=== PATIENT | male | born 1965 | race Caucasian/White ===

== ENCOUNTER → 2016-12-12 | Outpatient (CLI) | payer BC, OTHER ==
--- NOTE | 2016-12-13 07:09 | XR ---
Right elbow HISTORY: Pain and limited range of motion 3 views of the right elbow No comparisons Bone mineralization and alignment are maintained. There is marginal spurring present, joint space los s, remodeling especially at the radial aspect of the joint. There is no definite joint effusion. Smal l calcification thought present at the insertion of the triceps tendon. Difficult to exclude loose lito dies. IMPRESSION: Osteoarthritis, there may be osteochondromatosis, additional imaging may be of benefit
== END | disposition home or self-care (01) ==
LOC: RADXRYALE 16:21
PROVIDERS: ATTEND Internal Medicine
DX: M19.021 Primary osteoarthritis, right elbow (principal)

== ENCOUNTER 2017-01-27 09:01 | Observation (INO) | payer OTHER ==
[2017-01-27] MEDS ORDERED: RX INFO: IV CONTRAST WAS GIVEN 1 EACH MISC MISCELLANE PRN (09:12)
[2017-01-27] MEDS ORDERED: ONDANSETRON 4 MG/2 ML VIAL IVP STA (09:12)
[2017-01-27] MEDS ORDERED: SODIUM CHLORIDE 0.9% 1,000 ML IV STA (09:12)
[2017-01-27] MEDS ORDERED: HYDROmorphone 1 MG/ML 1 ML SYRINGE IVP STA (09:12)
--- NOTE | 2017-01-27 09:17 | ED ---
Abdominal Pain HPI - General Source: patient, RN notes reviewed Mode of arrival: ambulatory Limitations: no limitations <Byron Tamayo - Last Filed: 01/27/17 11:33> <Lg Renteria - Last Filed: 01/27/17 12:23> - General Chief Complaint: Abdominal Pain Stated Complaint: LRQ PAIN Time Seen by Provider: 01/27/17 09:09 - History of Present Illness Initial Comments: 51-year-old male presents emergency Department with chief complaint of right lower quadrant abdominal pain. Patient states that he initially had some pain 6 weeks ago states it subsided then has returned. Patient states it is worse over the last 24 hours especially with lifting logs yesterday. Patient denies any bulging. He states is just painful in the area and seems to radiate slightly across his abdomen. Patient denies any nausea, vomiting diarrhea constipation. Denies any fevers or chills. Patient denies any prior abdominal surgeries no prior colonoscopy in the past. Patient denies any dysuria, hematuria. Patient denies any fever, chills, chest pain or shortness of breath. Denies any flank pain. (Byron Tamayo) - Related Data Home Medications Medication Instructions Recorded Confirmed No Known Home Medications [No 01/27/17 01/27/17 Known Home Medications] Allergies Allergy/AdvReac Type Severity Reaction Status Date / Time No Known Allergies Allergy Verified 01/27/17 10:41 Review of Systems ROS Other: All systems not noted in ROS Statement are negative. <Byron Tamayo - Last Filed: 01/27/17 11:33> ROS Other: All systems not noted in ROS Statement are negative. <Lg Renteria - Last Filed: 01/27/17 12:23> ROS Statement: Those systems with pertinent positive or pertinent negative responses have been documented in the HPI. Past Medical History Past Medical History: No Reported History History of Any Multi-Drug Resistant Organisms: None Reported Past Surgical History: No Surgical Hx Reported Past Psychological History: No Psychological Hx Reported Smoking Status: Never smoker Past Alcohol Use History: Occasional Past Drug Use History: None Reported <Byron Tamayo - Last Filed: 01/27/17 11:33> General Exam Limitations: no limitations General appearance: alert, in no apparent distress Head exam: Present: atraumatic, normocephalic, normal inspection Respiratory exam: Present: normal lung sounds bilaterally. Absent: respiratory distress, wheezes, rales, rhonchi, stridor Cardiovascular Exam: Present: regular rate, normal rhythm, normal heart sounds. Absent: systolic murmur, diastolic murmur, rubs, gallop, clicks GI/Abdominal exam: Present: soft, tenderness (Moderate right lower quadrant tenderness), normal bowel sounds. Absent: distended, guarding, rebound, rigid Back exam: Absent: CVA tenderness (R), CVA tenderness (L) Neurological exam: Present: alert, oriented X3, CN II-XII intact Skin exam: Present: warm, dry, intact, normal color. Absent: rash <Byron Tamayo - Last Filed: 01/27/17 11:33> Medical Decision Making - Lab Data Result diagrams: 01/27/17 09:35 01/27/17 09:35 <Byron Tamayo - Last Filed: 01/27/17 11:33> - Lab Data Result diagrams: 01/27/17 09:35 01/27/17 09:35 <Lg Renteria - Last Filed: 01/27/17 12:23> - Medical Decision Making Medical decision-making. This is a 51-year-old male to complaint of pain to the right lower quadrant. CT was done showing evidence of swollen appendix. Radiologist his diagnosing acute appendicitis radiographically. White count 14, 000. Examination of the patient finds pain and guarding to the right lower quadrant positive for rebound or referred pain. Case discussed with general surgeon Dr. Jain. Wants patient admitted to hospital started on IV antibiotics was already been started, Zosyn. Pain medication and nothing by mouth, he will see the patient. Dr. Renteria General surgeon Dr. jain saw the patient in the emergency room. Patient admitted to his service. Dr. Renteria (Lg Renteria) - Lab Data Lab Results 01/27/17 01/27/17 01/27/17 Range/Units 09:35 09:35 10:35 WBC 14.4 H (3.8-10.6) k/uL RBC 4.83 (4.30-5.90) m/uL Hgb 16.4 (13.0-17.5) gm/dL Hct 47.6 (39.0-53.0) % MCV 98.6 (80.0-100.0) fL MCH 34.0 (25.0-35.0) pg MCHC 34.5 (31.0-37.0) g/dL RDW 13.0 (11.5-15.5) % Plt Count 224 (150-450) k/uL Neutrophils % 82 % Lymphocytes % 10 % Monocytes % 7 % Eosinophils % 0 % Basophils % 0 % Neutrophils # 11.8 H (1.3-7.7) k/uL Lymphocytes # 1.5 (1.0-4.8) k/uL Monocytes # 1.0 (0-1.0) k/uL Eosinophils # 0.0 (0-0.7) k/uL Basophils # 0.0 (0-0.2) k/uL Sodium 138 (137-145) mmol/L Potassium 4.2 (3.5-5.1) mmol/L Chloride 104 (98-107) mmol/L Carbon Dioxide 24 (22-30) mmol/L Anion Gap 10 mmol/L BUN 13 (9-20) mg/dL Creatinine 0.75 (0.66-1.25) mg/dL Est GFR (MDRD) Af Amer >60 (>60 ml/min/1.73 sqM) Est GFR (MDRD) Non-Af >60 (>60 ml/min/1.73 sqM) Glucose 119 H (74-99) mg/dL Calcium 10.2 (8.4-10.2) mg/dL Total Bilirubin 1.9 H (0.2-1.3) mg/dL AST 16 L (17-59) U/L ALT 30 (21-72) U/L Alkaline Phosphatase 73 (38-126) U/L Total Protein 7.7 (6.3-8.2) g/dL Albumin 4.8 (3.5-5.0) g/dL Amylase 51 (30-110) U/L Lipase 80 (23-300) U/L Urine Color Yellow Urine Appearance Clear (Clear) Urine pH 6.0 (5.0-8.0) Ur Specific [place] 1.009 (1.001-1.035) Urine Protein Negative (Negative) Urine Glucose (UA) Negative (Negative) Urine Ketones Negative (Negative) Urine Blood Negative (Negative) Urine Nitrite Negative (Negative) Urine Bilirubin Negative (Negative) Urine Urobilinogen <2.0 (<2.0) mg/dL Ur Leukocyte Esterase Negative (Negative) Disposition <Byron Tamayo - Last Filed: 01/27/17 11:33> <Lg Renteria - Last Filed: 01/27/17 12:23> Clinical Impression: Acute appendicitis Disposition: ADMITTED IP TO THIS HOSP Condition: Fair
[2017-01-27 10:13] LABS: Basophils % (A) 0 %; CH 33.9; CHCM 34.6; Eosinophils % (A) 0 %; HCT 47.6 % (39.0-53.0); HDW 2.26; HGB 16.4 gm/dL (13.0-17.5); Luc # (Auto) 0.16; Luc % (Auto) 1; Lymphocytes # (A) 1.5 k/uL (1.0-4.8); Lymphocytes % (A) 10 %; MCHC 34.5 g/dL (31.0-37.0); MCV 98.6 fL (80.0-100.0); Mean Platelet Volume 7.4; Monocytes % (A) 7 %; Neutrophils # (A) 11.8 k/uL (1.3-7.7); Neutrophils % (A) 82 %; RBC 4.83 m/uL (4.30-5.90); WBC 14.4 k/uL (3.8-10.6); WBC (Perox) 13.83
[2017-01-27 10:22] LABS: ALT 30 U/L (21-72); AST 16 U/L (17-59); Alkaline Phosphatase 73 U/L (38-126); Amylase 51 U/L (30-110); Anion Gap 10 mmol/L; Blood Urea Nitrogen 13 mg/dL (9-20); Calcium 10.2 mg/dL (8.4-10.2); Carbon Dioxide 24 mmol/L (22-30); Chloride 104 mmol/L (98-107); Glucose 119 mg/dL (74-99); Non-African American GFR(MDRD) >60 (>60 ml/min/1.73 sqM); Potassium 4.2 mmol/L (3.5-5.1); Sodium 138 mmol/L (137-145); Total Bilirubin 1.9 mg/dL (0.2-1.3); Total Protein 7.7 g/dL (6.3-8.2)
[2017-01-27 10:51] LABS: Appearance,Urine Clear (Clear); Bilirubin,Urine Negative (Negative); Glucose,Urine (UA) Negative (Negative); Ketones,Urine Negative (Negative); Leukocyte Esterase,Urine Negative (Negative); Nitrite,Urine Negative (Negative); Protein,Urine Negative (Negative); Specific Gravity,Urine 1.009 (1.001-1.035); UA Billing (MACRO vs. MICRO) CHEM; Urobilinogen,Urine <2.0 mg/dL (<2.0)
--- NOTE | 2017-01-27 11:25 | CT ---
EXAMINATION TYPE: CT abdomen pelvis w con DATE OF EXAM: 01/27/2017 REFERENCE: NONE HISTORY: abdominal pain HISTORY: RLQ pain REFERENCE: NONE CT DLP: 656.1 mGy Automated exposure control for dose reduction was used. TECHNIQUE: Helical acquisition through the abdomen and pelvis was obtained following the oral ingesti on of without Oral Contrast and following intravenous administration of 100 mL of Omnipaque 300. The data was reformatted in axial, coronal and sagittal projections. FINDINGS: Visualized portions of the lungs are clear. There is no pleural or pericardial fluid. The heart is not enlarged. Within the abdomen, there is an 8.4 mm low attenuating lesion in the dome of the diaphragm to small a ccurately characterize seen only on the coronal images. The liver is mildly prominent measuring 19 cm . The spleen and gallbladder appear normal. There is a tiny hiatal hernia. Both adrenal glands appear normal. Both kidneys demonstrate function and appear morphologically normal. The pancreas is unremarkable. There is no significant retroperitoneal, iliac or inguinal adenopathy. The bladder is unremarkable. There are scattered diverticula in the sigmoid region. I do not see radiographic evidence of divertic ulitis. The appendix is grossly thickened measuring 2.6 cm in thickness. There is associated inflammation a s mall amount of adjacent fluid. No free air is seen. There is no drainable abscess. There is degenerative disc disease at L4-5 and L5-S1 with a vacuum phenomena present at L4-5. No bony destructive lesion is seen. IMPRESSION: 1. ACUTE APPENDICITIS. 2. TINY LESION IN THE DOME OF THE LIVER TOO SMALL TO CHARACTERIZE. HEPATIC ULTRASOUND MAY BE WORTHWHI LE. 3. SMALL HIATAL HERNIA. 4. MINIMAL UNCOMPLICATED DIVERTICULOSIS OF THE SIGMOID COLON. 5. MILD DEGENERATIVE CHANGES WITHIN THE SPINE.
[2017-01-27] MEDS ORDERED: PIPERACILLIN-TAZOBACTAM 3.375 GM in DEXTROSE/WATER 1 50ML.BAG IVPB STA (11:33)
[2017-01-27] MEDS ORDERED: NALOXONE 0.4 MG/ML 1 ML VIAL IV PRN (11:34)
[2017-01-27] MEDS ORDERED: HYDROmorphone 1 MG/ML 1 ML SYRINGE IVP PRN (11:44)
[2017-01-27] MEDS ORDERED: ONDANSETRON 4 MG/2 ML VIAL IVP PRN (11:45)
[2017-01-27] MEDS: SODIUM CHLORIDE 0.9% 1,000 ML IV SCH ×2 (12:13→20:59)
--- NOTE | 2017-01-27 12:22 | P.GSHP ---
History of Present Illness H&P Date: 01/27/17 Chief Complaint: Right-sided abdominal pain This a 51-year-old male who is admitted to the hospital complaints of right- sided abdominal pain. Patient states that he developed pain proximal to 6 weeks ago. The pain has been intermittent in nature. He would have days were flareup and then subsides spontaneously. Patient developed similar pain yesterday which did not improve. He was seen in emergency room underwent CAT scan which showed evidence of chronic appendicitis with a dilated appendix. - Constitutional Constitutional: Reports as per HPI Past Medical History Past Medical History: No Reported History History of Any Multi-Drug Resistant Organisms: None Reported Past Surgical History: No Surgical Hx Reported Past Psychological History: No Psychological Hx Reported Smoking Status: Never smoker Past Alcohol Use History: Occasional Past Drug Use History: None Reported Medications and Allergies Home Medications Medication Instructions Recorded Confirmed Type No Known Home Medications [No 01/27/17 01/27/17 History Known Home Medications] Allergies Allergy/AdvReac Type Severity Reaction Status Date / Time No Known Allergies Allergy Verified 01/27/17 10:41 Surgical - Exam Vital Signs Temp Pulse Resp BP Pulse Ox 98.7 F 84 17 149/89 98 01/27/17 09:02 01/27/17 09:02 01/27/17 09:02 01/27/17 09:02 01/27/17 09:02 - General well developed, no distress - Eyes PERRL - ENT normal pinna - Neck no masses - Respiratory normal expansion - Cardiovascular Rhythm: regular - Abdomen Abdomen soft. There is some tenderness in the right lower quadrant. There is no rebound or guarding. There is minimal tenderness at McBurney's point. Abdomen: soft Results - Labs 01/27/17 09:35 01/27/17 09:35 Abnormal Lab Results - Last 24 Hours (Table) 01/27/17 01/27/17 Range/Units 09:35 09:35 WBC 14.4 H (3.8-10.6) k/uL Neutrophils # 11.8 H (1.3-7.7) k/uL Glucose 119 H (74-99) mg/dL Total Bilirubin 1.9 H (0.2-1.3) mg/dL AST 16 L (17-59) U/L Diabetes panel 01/27/17 Range/Units 09:35 Sodium 138 (137-145) mmol/L Potassium 4.2 (3.5-5.1) mmol/L Chloride 104 (98-107) mmol/L Carbon Dioxide 24 (22-30) mmol/L BUN 13 (9-20) mg/dL Creatinine 0.75 (0.66-1.25) mg/dL Glucose 119 H (74-99) mg/dL Calcium 10.2 (8.4-10.2) mg/dL AST 16 L (17-59) U/L ALT 30 (21-72) U/L Alkaline Phosphatase 73 (38-126) U/L Total Protein 7.7 (6.3-8.2) g/dL Albumin 4.8 (3.5-5.0) g/dL Calcium panel 01/27/17 Range/Units 09:35 Calcium 10.2 (8.4-10.2) mg/dL Albumin 4.8 (3.5-5.0) g/dL Pituitary panel 01/27/17 Range/Units 09:35 Sodium 138 (137-145) mmol/L Potassium 4.2 (3.5-5.1) mmol/L Chloride 104 (98-107) mmol/L Carbon Dioxide 24 (22-30) mmol/L BUN 13 (9-20) mg/dL Creatinine 0.75 (0.66-1.25) mg/dL Glucose 119 H (74-99) mg/dL Calcium 10.2 (8.4-10.2) mg/dL Adrenal panel 01/27/17 Range/Units 09:35 Sodium 138 (137-145) mmol/L Potassium 4.2 (3.5-5.1) mmol/L Chloride 104 (98-107) mmol/L Carbon Dioxide 24 (22-30) mmol/L BUN 13 (9-20) mg/dL Creatinine 0.75 (0.66-1.25) mg/dL Glucose 119 H (74-99) mg/dL Calcium 10.2 (8.4-10.2) mg/dL Total Bilirubin 1.9 H (0.2-1.3) mg/dL AST 16 L (17-59) U/L ALT 30 (21-72) U/L Alkaline Phosphatase 73 (38-126) U/L Total Protein 7.7 (6.3-8.2) g/dL Albumin 4.8 (3.5-5.0) g/dL - Imaging CT scan - abdomen: report reviewed (2.7 cm dilated appendix.) Assessment and Plan Plan: Acute and chronic appendicitis. Patient received IV and Vioxx today. He'll undergo laparoscopic appendectomy in the a.m.
[2017-01-27 13:26] VITALS: BMI 27.9
[2017-01-27] MEDS: HYDROmorphone 1 MG/ML 1 ML SYRINGE IVP PRN ×2 (19:58→23:27)
[2017-01-27] MEDS: PIPERACILLIN-TAZOBACTAM 3.375 GM in DEXTROSE/WATER 1 50ML.BAG IVPB SCH (21:03)
[2017-01-28] MEDS: HYDROmorphone 1 MG/ML 1 ML SYRINGE IVP PRN ×2 (03:38→07:09)
[2017-01-28] MEDS: SODIUM CHLORIDE 0.9% 1,000 ML IV SCH ×2 (03:38→11:47)
[2017-01-28] MEDS: PIPERACILLIN-TAZOBACTAM 3.375 GM in DEXTROSE/WATER 1 50ML.BAG IVPB SCH ×3 (03:46→21:30)
[2017-01-28] MEDS ORDERED: IV FLUID CONTINUATION 1,000 ML IV ONE (10:39)
[2017-01-28] MEDS ORDERED: DEXAMETHASONE SOD PHOS (MDV) 100 MG/10 ML VIAL IV ONE (10:57)
--- NOTE | 2017-01-28 11:05 | P.PN ---
Progress Note - Text The patient feels slightly better today. He still has some mild right lower quadrant pain. On exam his vital signs are stable. His abdomen is soft. There is minimal right lower quadrant tenderness. Chronic appendicitis. We'll perform laparoscopic appendectomy.
[2017-01-28] MEDS ORDERED: HEPARIN SODIUM,PORCINE 5,000 UNIT/ML 1 ML VIAL SQ ONE (11:08)
[2017-01-28] MEDS ORDERED: GLYCOPYRROLATE 0.2 MG/ML 2 ML VIAL ONE (11:34)
[2017-01-28] MEDS ORDERED: MIDAZOLAM 2 MG/2 ML VIAL ONE (11:34)
[2017-01-28] MEDS ORDERED: PROPOFOL 10 MG/ML 20 ML VIAL IV ONE (11:34)
[2017-01-28] MEDS ORDERED: ROCURONIUM BROMIDE 10 MG/ML 10 ML VIAL IV ONE (11:34)
[2017-01-28] MEDS ORDERED: fentaNYL (PF) 50 MCG/ML 2 ML AMP ONE (11:34)
[2017-01-28] MEDS ORDERED: LIDOCAINE 1% INJ 10MG/ML (20 ML MDV) ONE (11:34)
[2017-01-28] MEDS ORDERED: SUCCINYLCHOLINE CHLORIDE VIAL 200 MG/10 ML VIAL IV ONE (11:34)
[2017-01-28] MEDS ORDERED: NEOSTIGMINE 1 MG/ML 10 ML VIAL ONE (11:34)
[2017-01-28] MEDS ORDERED: SODIUM CHLORIDE 0.9% 100 ML with ceFAZolin 2,000 MG IV ONE ×2 (11:55)
[2017-01-28] MEDS ORDERED: BUPIVACAIN-EPI 0.5%-1:200,000 30 ML VIAL SQ ONE (11:56)
[2017-01-28] MEDS ORDERED: BENZOCAINE/MENTHOL LOZENG 1 EACH LOZENGE MUCOUS MEM PRN (12:12)
[2017-01-28] MEDS ORDERED: HYDROmorphone 1 MG/ML 1 ML SYRINGE IVP PRN (12:12)
[2017-01-28] MEDS ORDERED: KETOROLAC 30 MG/ML 1 ML VIAL IVP PRN (12:12)
--- NOTE | 2017-01-28 12:12 | P.OP ---
Date of Procedure: 01/28/17 Preoperative Diagnosis: Appendicitis Postoperative Diagnosis: Appendicitis Procedure(s) Performed: Laparoscopic appendectomy Implants: Anesthesia: NILAM Surgeon: Stanford Jain Estimated Blood Loss (ml): 5 Pathology: other (Appendix) Condition: stable Disposition: PACU Indications for Procedure: Operative Findings: Description of Procedure: The patient's placed on the operating table in the supine position. The patient received general anesthesia. The abdomen was prepped and draped in the usual sterile fashion. The skin was anesthetized 1% local Xylocaine at the trocar sites. Using an 11 blade the skin was incised at the umbilicus. The umbilicus was grasped with a [place] clamp and then a Veress needle was placed into the peritoneal cavity. Position of the Veress needle was confirmed with positive drop test. After adequate insufflation a 5 mm trocar was placed into the peritoneal cavity. The abdomen was further insufflated. And then the laparoscope was placed in the peritoneal cavity. Next a 5 mm trocar was placed in the midline suprapubic position. And then a 10 mm trocar was placed in the midline epigastric position. The patient was rotated with the right side up and in Trendelenburg. The appendix was visualized. The appendix appeared to be inflamed. The appendix was grasped and then using the Harmonic scissors the mesoappendix was divided. A PDS Endoloop was then placed around the base of the appendix. And then the appendix was divided using Harmonic scissors. The appendix was placed into an Endo Catch and brought out through the 10 mm trocar site. The abdomen was irrigated. There is no bleeding seen. The trochars withdrawn. The skin was closed interrupted 3-0 Monocryl suture. Dermabond dressing was applied. Patient was sent to recovery room in stable condition.
[2017-01-28] MEDS ORDERED: LACTATED RINGERS 1,000 ML IV ONE (12:15)
[2017-01-28] MEDS: HYDROmorphone 1 MG/ML 1 ML SYRINGE IVP ONE ×2 (12:32→12:39)
[2017-01-28 12:39] VITALS: RESP 16
[2017-01-28] MEDS: HYDROcodone/APAP 7.5-325MG 1 EACH TAB PO PRN ×3 (14:13→22:03)
[2017-01-28] MEDS: D5-0.45% NACL WITH KCL 20MEQ/L 1,000 ML IV SCH ×2 (15:23→21:30)
[2017-01-29] MEDS: PIPERACILLIN-TAZOBACTAM 3.375 GM in DEXTROSE/WATER 1 50ML.BAG IVPB SCH ×2 (02:49→12:28)
[2017-01-29] MEDS: HYDROcodone/APAP 7.5-325MG 1 EACH TAB PO PRN ×4 (02:50→16:28)
[2017-01-29] MEDS: D5-0.45% NACL WITH KCL 20MEQ/L 1,000 ML IV SCH (02:51)
[2017-01-29] MEDS ORDERED: ENOXAPARIN 40 MG/0.4 ML SYRINGE SQ SCH (09:00)
[2017-01-29 14:58] VITALS: BP 116/58; PULSE 75; TEMP 98.4
--- NOTE | 2017-01-29 18:48 | P.DS ---
Providers Date of admission: 01/27/17 11:56 Expected date of discharge: 01/29/17 Attending physician: Stanford Jain Primary care physician: Indy Malone Hospital Course: This a 51-year-old male who was admitted to hospital with chronic appendicitis. Patient underwent laparoscopic appendectomy . Please see hospital chart for details. Procedures: Laparoscopic appendectomy Patient Condition at Discharge: Fair Plan - Discharge Summary New Discharge Prescriptions: New Docusate [Colace] 100 mg PO BID #20 capsule HYDROcodone/APAP 7.5-325MG [[place] 7.5] 1 each PO Q4H PRN #60 tab PRN Reason: Pain Discharge Medication List Docusate [Colace] 100 mg PO BID #20 capsule 01/29/17 [Rx] HYDROcodone/APAP 7.5-325MG [[place] 7.5] 1 each PO Q4H PRN #60 tab 01/29/17 [Rx] Follow up Appointment(s)/Referral(s): Indy Malone MD [Primary Care Provider] - 02/06/17 3:15 pm Stanford Jain MD [STAFF PHYSICIAN] - 1 Week (Patient to call Dr. Jain's office Saturday morning to schedule follow up appointment. The office is closed at time of discharge.) Patient Instructions/Handouts: Laparoscopic Appendectomy (DC) Discharge Disposition: HOME SELF-CARE
== END 2017-01-29 18:40 | disposition home or self-care (01) ==
LOC: EC 09:01 → 3SUR 11:56
PROVIDERS: ADMIT Surgery; ATTEND Surgery
DX: K35.80 Unspecified acute appendicitis (principal); K44.9 Diaphragmatic hernia without obstruction or gangrene; K57.30 Diverticulosis of large intestine without perforation or abscess without bleeding
CPT/HCPCS: 44970; 96376 ×3; 96366 ×2; 96372; 96375 ×2; 96361; 96365; 99285; 36415; 88304; 80053; 82150; 83690; 85025; 81003; 74177; G0378 ×3; J2250; J0330; J1644; J2710; J2405 ×2; J0690; J2001; J1650; J3010; J1885; J1170 ×2; J2543 ×3; Q9967; J1100; J2704

== ENCOUNTER → 2017-10-02 | Outpatient (CLI) | payer OTHER ==
--- NOTE | 2017-10-03 08:21 | CT ---
EXAMINATION TYPE: CT chest abdomen w con DATE OF EXAM: 10/02/2017 COMPARISON: 01/27/2017 HISTORY: Right upper quadrant pain CT DLP: 686.6 mGycm. Automated Exposure Control for Dose Reduction was Utilized. CONTRAST: CT scan of the thorax, abdomen and pelvis is performed with IV Contrast, patient injected with 100 mL of Omnipaque 300. FINDINGS: LUNGS: The lungs are grossly clear, there is no concerning parenchymal mass or nodule identified. Ve ry minimal bibasilar subsegmental dependent atelectasis is present. There is no pleural effusion or p neumothorax seen. The tracheobronchial tree is patent. MEDIASTINUM: There are no greater than 1 cm hilar or mediastinal lymph nodes. Strand-like density wi thin the superior mediastinum likely represents scant residual thymic tissue. No pericardial effusion is seen. OTHER: Very small hiatal hernia is redemonstrated. LIVER/GB: There are scattered hypoattenuated subtle subcentimeter hepatic lesions throughout the hepa tic parenchyma with the largest measuring up to 5 mm on series 3 image 56. The previously seen 8 mm l esion in the dome of diaphragm is only partially visualized on today's examination on series 3 image 48. All these lesions (approximately 13) are too small to accurately characterize. Additionally focal geographic area of hypoattenuation is seen within segment IVb of the liver, most commonly related to focal fatty infiltration. Retrospectively all of these tiny foci throughout the liver are seen on th e prior exam and stable from 01/27/2017. These statistically represent tiny cyst although surveillance is recommended. PANCREAS: No significant abnormality is seen. No ductal dilatation. SPLEEN: No significant abnormality is seen. No splenomegaly. Small splenule seen adjacent to the emi ve spleen. ADRENALS: No significant abnormality is seen. No nodules. KIDNEYS: Kidneys enhance and excrete symmetrically. No hydronephrosis. BOWEL: The transverse colon is decompressed although appears to demonstrate paucity of haustral kristine ngs and engorgement of the adjacent vasa recta without significant fat stranding. This may relate to incomplete distention or mild colitis. Correlate with patient's symptoms. LYMPH NODES: No greater than 1cm abdominal or pelvic lymph nodes are appreciated. OSSEOUS STRUCTURES: Multilevel mild degenerative disc disease of the visualized thoracolumbar spine i s redemonstrated. IMPRESSION: 1. Numerous approximately 2 mm hepatic lesions with the largest measuring 5 mm. These are punctate an d vague but retrospectively stable from the prior exam and most commonly represent small cysts in a p atient without background liver disease, however surveillance is recommended with repeat CT in 6-12 m [facility]. Alternatively MRI hepatic mass protocol could be performed to evaluate for any abnormal enhanc ement or very bright T2 signal that would indicate cysts. 2. Paucity of haustral markings within the transverse colon with engorgement of the adjacent vasculat ure, which could relate to very mild colitis or may relate to incomplete distention. Correlate with p atient's symptoms. 3. Redemonstration of a very small hiatal hernia.
== END | disposition home or self-care (01) ==
LOC: RADCTMAIN 14:22
PROVIDERS: ATTEND Internal Medicine
DX: K76.9 Liver disease, unspecified (principal); K44.9 Diaphragmatic hernia without obstruction or gangrene
CPT/HCPCS: 71260; 74160; Q9967

== ENCOUNTER → 2017-10-14 | Outpatient (CLI) | payer OTHER ==
--- NOTE | 2017-10-15 00:40 | MR ---
EXAMINATION TYPE: MR liver wo/w con DATE OF EXAM: 10/14/2017 COMPARISON: CT scan 10/02/2017 HISTORY: Liver disease, unspecified CONTRAST: Standard multiplanar, multisequence MRI departmental protocol utilizing 7.5 mL intravenous Gadavist g adolinium contrast. FINDINGS: Liver has normal size and contour. The gallbladder appears normal. There are numerous small rounded high signal foci on the T2 images throughout the liver consistent with multiple cysts. There is no pathologic enhancement. These have low signal on the T1 images. There is no evidence of pancreatic mass. Spleen appears normal. There is no adrenal mass. Kidneys show normal size and contour. There is no hydronephrosis. There is no retroperitoneal adenopathy. There is no sign of ascites. I see no sign of pleural effusion. IMPRESSION: Numerous small cysts throughout the liver. Otherwise negative MR scan of the abdomen. No change benji red to recent CT scan on 10/02/2017.
== END | disposition home or self-care (01) ==
LOC: RADMRIMAIN 05:58
PROVIDERS: ATTEND Internal Medicine
DX: K76.89 Other specified diseases of liver (principal)
CPT/HCPCS: 74183; A9581

== ENCOUNTER 2017-10-18 07:30 | Day surgery (SDC) | payer OTHER ==
[2017-10-15 15:22] VITALS: BMI 26.1
[~2017-10-18 07:30] MED LIST: LACTATED RINGERS 1,000 ML IV SCH; LIDOCAINE 1% 20 ML VIAL (10MG/ML) FOR IV START INTRADERMA PRN
[2017-10-18 08:08] VITALS: RESP 16; TEMP 97.8
[2017-10-18] MEDS ORDERED: LIDOCAINE 1% INJ 10MG/ML (20 ML MDV) ONE (08:46)
[2017-10-18] MEDS ORDERED: PROPOFOL 10 MG/ML 20 ML VIAL IV ONE (08:46)
--- NOTE | 2017-10-18 08:48 | P.GSHP ---
History of Present Illness H&P Date: 10/18/17 Chief Complaint: GERD, diverticulitis This a 52-year-old male who's had complaints of GERD and left lower quadrant pain. Patient presents today for EGD and colonoscopy to evaluate for GERD and diverticulitis. Past Medical History Past Medical History: No Reported History Additional Past Medical History / Comment(s): hiatal hernia. poss diverticulosis History of Any Multi-Drug Resistant Organisms: None Reported Past Surgical History: Appendectomy Past Anesthesia/Blood Transfusion Reactions: No Reported Reaction Smoking Status: Never smoker - Past Family History Mother Family Medical History: No Reported History Medications and Allergies Home Medications Medication Instructions Recorded Confirmed Type Acetaminophen Tab [Tylenol Tab] 650 mg PO Q6H PRN 10/15/17 10/18/17 History Ibuprofen [Motrin] 800 mg PO Q8H PRN 10/18/17 10/18/17 History Allergies Allergy/AdvReac Type Severity Reaction Status Date / Time No Known Allergies Allergy Verified 10/18/17 07:59 Surgical - Exam Vital Signs Temp Pulse Resp BP Pulse Ox 97.8 F 103 H 16 136/93 97 10/18/17 08:07 10/18/17 08:07 10/18/17 08:07 10/18/17 08:07 10/18/17 08:07 - General well developed, no distress - Eyes PERRL - ENT normal pinna - Neck no masses - Respiratory normal expansion - Cardiovascular Rhythm: regular - Abdomen Abdomen: soft, non tender Assessment and Plan Assessment: GERD, left lower quadrant pain. We'll perform EGD to evaluate for GERD and colonoscopy today for left lower quadrant pain and possible diverticulitis.
--- NOTE | 2017-10-18 09:11 | P.OP ---
Date of Procedure: 10/18/17 Preoperative Diagnosis: GERD Diverticulitis Postoperative Diagnosis: Antral gastritis Small hilar hernia Mild esophagitis Rectal polyp Sigmoid colon polyp Mild diverticulosis External hemorrhoids Procedure(s) Performed: EGD Colonoscopy Anesthesia: MAC Surgeon: Stanford Jain Pathology: other (Rectal polyp, sigmoid colon polyp, antrum, esophagus) Condition: stable Disposition: PACU Description of Procedure: The patient's placed on the endoscopy table lateral position. He received IV sedation. The gastroscope placed oropharynx passed in the esophagus and stomach. The scope was then placed through the pylorus. First and second portion of the duodenum. Normal. Scope was then brought back and the antrum and this was mildly deformed. A biopsies was performed. The scope was then retroflexed and there was a small sliding hiatal hernia. The GE junction was at 38 cm. The distal esophagus appeared minimally inflamed a biopsies performed. The proximal esophagus appeared normal. The scope was withdrawn for patient. Next digital rectal exam was performed which revealed external hemorrhoids. The flexible colonoscope was then placed patient anus passed throughout the entire colon. The ileocecal valve was visualized. The cecum, ascending and transverse colon appeared normal. In the descending colon was a few scattered diverticula. Scope was brought back and sigmoid colon and a peduncular polyp was seen. This removed with the snare. Scope was then brought back the rectum another small sessile polyp was seen this removed the forcep. The scope was then withdrawn.
[2017-10-18 09:27] VITALS: BP 116/67; PULSE 85
== END 2017-10-18 09:55 | disposition home or self-care (01) ==
LOC: ORWHC2ENDO 07:30
PROVIDERS: ATTEND Surgery
DX: K29.50 Unspecified chronic gastritis without bleeding (principal); K21.0 Gastro-esophageal reflux disease with esophagitis; K63.5 Polyp of colon; K44.9 Diaphragmatic hernia without obstruction or gangrene; K64.4 Residual hemorrhoidal skin tags; K62.1 Rectal polyp
CPT/HCPCS: 88305; 45385; 45380; 43239; J2001; J2704

== ENCOUNTER → 2021-11-03 | Outpatient (CLI) | payer OTHER ==
--- NOTE | 2021-11-03 20:49 | MR ---
EXAMINATION TYPE: MR lumbar spine wo con DATE OF EXAM: 11/03/2021 COMPARISON: CT abdomen and pelvis 2017. HISTORY: Low back pain & numbness that radiates down both legs since Jun 2021 due to compression inju ry TECHNIQUE: Multiplanar, multisequence imaging of the lumbar spine is performed without IV contrast. FINDINGS: Sagittal images of the lumbar spine show vertebral body heights and alignment to appear sta ble. We will use transitional type L6 vertebra. There is moderate to advanced disc space narrowing wi th heterogeneous Modic type II endplate changes and mild to moderate anterior spurring at L5-L6 level . Moderate disc space narrowing at L6-S1 level is present with sacralized left L6 segment redemonstra marita. The conus medullaris is normal in position and signal ending at mid L1 level. Axial images show T12-L1 and L1-L2 levels to appear within normal limits. Axial images at L2-L3 level show [id number] broad disc bulge with left foraminal disc protrusio n component. There is mild effacement of the anterior thecal sac. There is mild left-sided anterior i nferior neural foraminal narrowing. Axial images at L3-L4 level show moderate broad disc bulge effacing anterior thecal sac and causing m ild bilateral anterior inferior neural foraminal narrowing right greater than left. Axial images at L4-L5 level moderate to severe broad disc bulge with right paracentral/foraminal disc protrusion component. Mild facet arthropathy bilaterally. There is [id number] bilateral neural foraminal narrowing at this level identified. Axial images at L5-L6 level show [id number] facet arthropathy bilaterally. There is mild broad disc bulge. There is effacement of the anterior and posterior lateral thecal sac. There is moderate b ilateral neural foraminal narrowing. Axial images at L6-S1 level show sacralized L6 segment. Spinal canal is preserved. Patent bilateral n eural foramina. Paraspinal muscle bulk is preserved. 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 Multilevel degenerative changes in the mid to lower lumbar spine as detailed above. Largest disc herniation noted at L4-L5 level.
== END | disposition home or self-care (01) ==
LOC: RADMRIMAIN 18:59
PROVIDERS: ATTEND Internal Medicine
DX: M47.26 Other spondylosis with radiculopathy, lumbar region (principal); M51.16 Intervertebral disc disorders with radiculopathy, lumbar region
CPT/HCPCS: 72148